=== PATIENT | female | born 1955 | race Caucasian/White ===

== ENCOUNTER 2024-07-13 11:40 | Emergency (ER) | payer MEDICARE, SELFPAY ==
[2024-07-13 11:47] VITALS: BP 158/76; BMI 31.2
[2024-07-13 12:21] LABS: ALT (SGPT) 20 U/L (0-35); AST (SGOT) 26 U/L (14-36); Albumin 4.4 g/dl (3.5-5.0); Alkaline Phosphatase 65 U/L (38-126); Blood Urea Nitrogen 26 mg/dl (7-17); Calcium 9.5 mg/dl (8.4-10.2); Carbon Dioxide 27 mmol/L (22-30); Chloride 103 mmol/L (98-107); Estimated Creatinine Clearance 70 ml/min; Glucose 87 mg/dl (70-99); Hematocrit 38.6 % (37.0-47.0); Hemoglobin 12.5 g/dL (12.0-16.0); Mean Corp Hgb Conc. 32.4 g/dL (33.0-37.0); Mean Corpuscular Hgb 27.4 pg (27.0-31.0); Mean Corpuscular Volume 84.6 fL (81.0-99.0); Mean Platelet Volume 9.6 fL (7.4-10.4); Platelet Count 280 10^3/uL (130-400); Potassium 4.2 mmol/L (3.5-5.1); Red Blood Cell Count 4.56 10^6/uL (4.20-5.40); Red Cell Dist. Width 12.4 % (11.5-14.5); Sodium 137 mmol/L (135-145); Total Bilirubin 0.5 mg/dl (0.2-1.3); Total Protein 6.7 g/dl (6.3-8.2); White Blood Cell Count 5.8 10^3/uL (4.8-10.8); eGFR > 60.00
[2024-07-13 12:24] LABS: Troponin I < 0.012 ng/ml
[2024-07-13 12:37] VITALS: BP 146/75
[2024-07-13 13:11] LABS: % Basophils 0.7 % (0-2); % Eosinophils 1.9 % (0-6); % Immature Granulocytes 0.2 % (0-0.5); % Lymphocytes 50.3 % (20.5-51.1); % Monocytes 10.3 % (1.7-9.3); % Neutrophils 36.6 % (42.2-75.2); Absolute Eosinophils 0.1 10^3/uL (0-0.7); Absolute Lymphocytes 2.9 10^3/uL (1.2-3.4); Absolute Monocytes 0.6 10^3/uL (0.1-0.6); Absolute Neutrophils 2.1 10^3/uL (1.4-6.5); Nucleated Red Blood Cells % 0 %
[2024-07-13 14:07] VITALS: BP 137/80
[2024-07-13 16:26] VITALS: BP 172/82
[2024-07-13 17:00] VITALS: BP 173/66
[2024-07-13] MEDS: TYLENOL 1000 MG PO (17:08)
--- NOTE | 2024-07-13 17:25 | ED.GENMED ---
History of Present Illness
General
Chief Complaint: Chest Pain
Source: patient
Exam Limitations: none
Time Seen by Provider: 07/13/24 16:34
Nursing documentation reviewed up to this point in time: agreed with
History of Present Illness
History of Present Illness:
69 y/o F with h/o fibromyalgia, no chronic meds
formerly on BP meds
here with intermittent sharp nonradiating L upper chest pain x 3-4 days
12/21 when it comes on
is sharp and fleeting
not related to any change in position/walking but she does feel worse if she takes a deep breath while hadving one of the episodes
no associated nausea/vomiting/diarrhea, arm pain/weakness, trouble breathing
no recent travel or surgeries
no previous DVT/pe
saw cardioloogist remotely after ches tpain gildardo twas costochondritis
no meds tkaen for relief
came jorge cuello [place] thought it would be gone by now
Past History
Past History
ED Past Medical History: Negative CAD, HTN, Hypercholesterolemia or NIDDM
Social History
Tobacco: Non-smoker
Personal:
Review of Systems
Review of Systems
Allergies reviewed?: Yes
All Other Systems: Not applicable
Phy Exam
Physical Exam
Physical Exam:
GENERAL: Alert , in no apparent distress, LOOKS WELL
EYE: pupils equal and reactive
NECK: Supple
ENT: o/p clr, mmm.
CARDIAC: Regular rate and rhythm .no ectopy on the monitor even when pt having sypmtoms
no chest wall rash
nontender
LUNGS: Clear breath sounds bilaterally, no acute respiratory distress, no wheezes/rales/rhonchi
ABDOMEN: Soft, without focal tenderness, no r/g, no cvat, normal bowel sounds
NEUROLOGICAL: Alert and oriented, no focal neuro deficits
SKIN: Warm and dry, skin intact.
MUSCULOSKELETAL: No edema, well perfused. neg medardo's sign
PSYCH: Normal and appropriate interaction.
Scores
Heart Score for Chest Pain Patients
STEMI patient?: No
History: Slightly or Non-Suspicious
ECG: Nonspecific Repolarization
Age: >/= 65 years
Risk Factors: No Risk Factors
Troponin: </= Normal Limit
Heart Score for Chest Pain Patients: 3
Heart Score Risk: 2.5% MACE over next 6 weeks
Course
Orders/Labs/Results
Orders:
Orders
07/13/24 11:41
Electrocardiogram (*1) Urgent
Reason for Study: Chest Pain
EKG- Treatment ONCE
07/13/24 11:54
Complete Blood Count/With Diff Urgent
Comprehensive Metabolic Panel Urgent
Troponin I Urgent
07/13/24 16:51
Electrocardiogram (*1) Urgent
Reason for Study: Chest Pain
EKG- Treatment ONCE
Acetaminophen [Tylenol] 1,000 mg PO NOW STA
07/13/24 17:17
D-Dimer Urgent
Troponin I Urgent
07/13/24 17:51
CR Chest - 2 Views Urgent
Comment:
Reason For Exam: CHEST PAIN
Abnormal Lab Results
07/13/24
11:54
MCHC 32.4 L g/dL
(33.0-37.0)
Neutrophils % 36.6 L %
(42.2-75.2)
Monocytes % 10.3 H %
(1.7-9.3)
BUN 26 H mg/dl
(7-17)
07/13/24 11:54
07/13/24 11:54
Vital Signs
Initial and Last Documented VS:
Initial Vital Signs
Temp Pulse Resp BP Pulse Ox
36.8 C 76 18 158/76 97
07/13/24 11:47 07/13/24 11:47 07/13/24 11:47 07/13/24 11:47 07/13/24 11:47
Last Documented Vital Signs
Temp Pulse Resp BP Pulse Ox
36.9 C 84 16 173/66 95
07/13/24 14:07 07/13/24 17:45 07/13/24 16:45 07/13/24 17:00 07/13/24 17:45
MDM/Problems Addressed
Differential Diagnosis Includes:
acs, PE, chest wall pain, fibromyalgia
MDM/Problems Addressed:
69 y/o F with no cardiac problems
RSD/fibromyalgia
here with ches tpain intermittent x 3-4 days brief sharp pain that lasts 1-2 seconds, not realted to movement
she does have worse pain with breathing when it is occurring but otherwise doesn' thave pleuriti cpain
no rash, no fever, no cough
pt has fibromyalgia and is off all meds becaue they never helped
she is well appearing
occasionally holds her chest
has no ectopy on the mointor
ekg is nonspecific biphasic t wav v2, unchanged from previous
trop neg
2nd trop and ek gunchnaged
d dimer neg
cxr indep reviewed, clear
d/c home unlikey ACS; could be nerve pain/fibro flare
[place]
f/u pcp
*Critical Care Note
Total Time (30-74mins, 75-104mins- exclusive of procedures): Not Applicable
ED Attending Note
-
Portions of this chart may have been created with voice recognition software.� Occasional wrong word or��sound alike� substitutions may have occurred due to the inherent limitations of voice recognition software.
Discharge Plan
Departure
Patient Disposition: Home (Routine Discharge)
Date of Disposition: 07/13/24
Time of Disposition: 18:44
Patient with high blood pressure during this ER visit?: No
Condition: Fair
Covid-19: Not Applicable
Discharge Problem:
Chest pain
Instructions: Chest Pain PCP Follow Up
Prescriptions:
No Action
zolpidem 5 MG tablet
5 mg PO HSPRN PRN (Reason: sleeplessness)
cyanocobalamin (vitamin B-12) 5,000 MCG tablet,disintegrating
5,000 mcg sublingual DAILY
Referrals:
Hilario Arenas MD [Family Provider] -
Hilario Muñoz MD [Active] - Follow up in 2-3 days
Activity Restrictions/Additional Instructions:
Were not sure the cause of your chest pain but your D-dimer was negative ruling out a blood clot, you have 2 negative troponins ruling out a heart attack. It could be nerve pain, muscular pain, fibromyalgia or other causes. Try Tylenol. Avoid
strenuous activity for now. Has close follow-up with your family doctor. Call to make an appointment with a electrician locomotive as well. Return for worsening symptoms or persistent pain, trouble breathing, passing out etc.
Interventions
Interventions:
*Risk Screen - Suicide Last Done: 07/13/24 11:47
*General Assessment Last Done: 07/13/24 11:47
*Neglect/Abuse Screening Last Done: 07/13/24 11:47
ED- Fall Risk Assessment Last Done: 07/13/24 19:24
*ED COVID-19 Vaccine History Last Done: 07/13/24 11:47
*Nursing Disposition Last Done: 07/13/24 19:24
ED- Cardiac Assessment Last Done: 07/13/24 17:46
Discharge Date and Time
Discharge Date/Time: 07/13/24 19:24
Print Language: PORTUGUESE
[2024-07-13 17:41] LABS: D-Dimer 0.32 ug/mlFEU (0.00-0.50)
[2024-07-13 17:51] LABS: Troponin I < 0.012 ng/ml
== END 2024-07-13 19:24 | disposition home or self-care (01) ==
LOC: EMR 11:40
PROVIDERS: Emergency Medicine; Physician Assistant; EMERGENCY PHYSICIAN Emergency Medicine; FAMILY PHYSICIAN Family Medicine
DX: R07.89 Other chest pain (principal)
CPT/HCPCS: 99285; 71046; 80053; 84484; 85025; 85379; 93005